=== PATIENT | male | born 1985 | race Caucasian/White ===

== ENCOUNTER 2017-10-14 08:14 | Outpatient (CLI) | payer OTHER | END 2017-10-14 08:17 | disposition home or self-care (01) | LOC: SONOGRAMA 08:14 | DX: R22.2 Localized swelling, mass and lump, trunk (principal) ==

== ENCOUNTER 2023-08-25 13:50 | Emergency (ER) | payer OTHER ==
[~2023-08-25] VITALS: Ht 170.2 cm; Wt 114.3 kg
[~2023-08-25 13:50] MED LIST: AVAPRO150 MG PO
[2023-08-25 18:06] LABS: HEMOGLOBIN 13.6 g/dL (13-16.00); MEAN CELL VOLUME 84.1 fL (80.0-100.00); MEAN CORPUSCULAR HEMOGLOBIN 27.9 pg (27.00-32.0); MEAN CORPUSCULAR HGB CONC 33.2 g/dl (32.0-36.0); PLATELET COUNT 346 K/uL (150-450); RED BLOOD COUNT 4.87 M/uL (4.00-6.00); RED CELL DISTRIBUTION WIDTH 13.9 % (11.5-14.5)
[2023-08-25 18:41] LABS: PH,URINE 5.5 (5.0-8.0); URINE APPEARANCE Clear; URINE BILIRRUBIN Negative (NEGATIVE); URINE BLOOD Negative; URINE COLOR Yellow; URINE GLUCOSE Negative (NEGATIVE); URINE LEUKOCYTE Negative; URINE NITRATE Negative; URINE PROTEIN Negative (NEGATIVE); URINE RBC 2.7 uL (0.0-20.8); URINE UROBILINOGEN 0.2 E.U./dl
[2023-08-25 18:49] LABS: URINE BACTERIA 3.7 uL (0.0-1933); URINE WBC 0.7 uL (0.0-23.2)
[2023-08-25 18:59] LABS: ALBUMIN 4.7 gm/dL (3.4-5.0); BILIRUBIN TOTAL 0.78 mg/dL (0.3-1.2); CALCIUM 10.1 mg/dL (8.5-10.1); CREATININE SERUM 0.93 mg/dL (0.70-1.30); GFR 90.45; GLOBULINA 3.6 G/DL (2.4-3.5); POTASSIUM 4.27 mEq/L (3.5-5.1); TOTAL PROTEIN 8.3 gm/dL (6.4-8.2)
[2023-08-26 00:08] LABS: ABG PH 7.408 (7.35-7.45); ABG PO2 82.5 mmHg (80-100); ABG pCO2 40.9 mmHg (35-45); BASE EXCESS 0.5 mmol/l; BICARBONATE 25.2 mmol/l (23-25); SaO2 96.2 %; Tco2 26.5 mmol/l; o2 21 %
[2023-08-26 00:09] LABS: allen test SATISFACTORY; puncture site RADIAL LEFT
== END 2023-08-25 20:59 | disposition home or self-care (01) ==
LOC: ER 13:50
PROVIDERS: General Practice
DX: R42 Dizziness and giddiness (principal); J45.909 Unspecified asthma, uncomplicated; I10 Essential (primary) hypertension; Z20.822 Contact with and (suspected) exposure to COVID-19